=== PATIENT | female | born 1990 | race Two or more races ===

== ENCOUNTER → 2020-03-23 | Emergency (ER) | payer MEDICAID ==
[~2020-03-23] VITALS: Ht 160 cm; Wt 65.8 kg
[~2020-03-23] MED LIST: IBUPROFEN600 M1 ORAL; ROBAXIN-500MG ORAL
[2020-03-23 13:45] VITALS: BP 109/65
--- NOTE | 2020-03-23 14:31 | Emergency Room Report ---
History of Present Illness General Chief Complaint: Upper Extremity Injury Source: Patient Present Illness HPI 29-year-old female with no symptom past medical history here complaining of right hand especially right fifth finger pain after a soccer ball headache yesterday. Obvious deformity of right fifth finger noted. Swelling noted right hand. Patient has full range of motion of all digits. No ecchymosis noted. Denies tingling and numbness. Rates the pain 5 out of 10 without radiation. Has not taken medication today for symptom relief however did take ibuprofen yesterday with symptom relief. Neurovascularly intact. Denies pain radiation or tingling or numbness. Denies . Allergies: Coded Allergies: No Known Allergies (Unverified , 03/23/20) COVID-19 Screening Contact w/high risk pt: No Recent Travel to affected area: No Experienced COVID-19 symptoms?: No COVID-19 Testing performed INFORMATION SYSTEMS OPERATOR: No Patient History Past Medical History: see triage record Past Surgical History: none Pertinent Family History: none Last Menstrual Period: 03/16/20 Now: No Immunizations: UTD Reviewed Nursing Documentation: PMH: Agreed; PSxH: Agreed Nursing Documentation-PMH Past Medical History: No Stated History Review of Systems All Other Systems: negative except mentioned in HPI Physical Exam Vital Signs Date Time Temp Pulse Resp B/P (MAP) Pulse Ox O2 Delivery O2 Flow Rate FiO2 03/23/20 13:23 99.0 73 18 109/65 (80) 97 Room Air Sp02 EP Interpretation: reviewed, normal General Appearance: no apparent distress, alert, GCS 15, non-toxic Head: normocephalic, atraumatic Eyes: bilateral eye normal inspection, bilateral eye PERRL ENT: hearing grossly normal, normal pharynx, no angioedema, normal voice Neck: full range of motion, supple/symm/no masses Respiratory: chest non-tender, lungs clear, normal breath sounds, speaking full sentences Cardiovascular #1: regular rate, rhythm, no edema Cardiovascular #2: 2+ radial (R), 2+ radial (L) Gastrointestinal: normal bowel sounds, non tender, soft, non-distended, no guarding, no rebound Genitourinary: no CVA tenderness Musculoskeletal: back normal, pelvis stable, swelling - Right hand thenar side dorsum, other - Dislocation of right fifth finger Neurologic: alert, motor strength/tone normal, oriented x3, sensory intact, responsive, speech normal Psychiatric: judgement/insight normal, memory normal, mood/affect normal, no suicidal/homicidal ideation Skin: no rash Lymphatic: no adenopathy Procedures Splinting Splinting : Consent: Verbal Location: Right hand Pre-Made Type: metal Pre-Proc Neuro Vasc Exam: normal Post-Proc Neuro Vasc Exam: normal Patient Tolerated: Well Complications: None Medical Decision Making PA Attestation All my diagnosis and treatment plans were reviewed ad discussed with my supervising physician Dr. Shaikh Diagnostic Impression: Primary Impression: Finger dislocation Additional Impression: Hand contusion ER Course 29-year-old female with no symptom past medical history here complaining of right hand especially right fifth finger pain after a soccer ball headache yesterday. Obvious deformity of right fifth finger noted. Swelling noted right hand. Patient has full range of motion of all digits. No ecchymosis noted. Denies tingling and numbness. Rates the pain 5 out of 10 without radiation. Has not taken medication today for symptom relief however did take ibuprofen yesterday with symptom relief. Neurovascularly intact. Denies pain radiation or tingling or numbness. Denies . Ddx considered but are not limited to: Hand sprain, hand sprain, hand fracture Vital signs: are WNL, pt. is afebrile H&PE are most consistent with : Right hand contusion, right fifth finger dislocation ORDERS: Hand x-ray, ibuprofen, Robaxin ED INTERVENTIONS: Metal splint, Donn wrap DISCHARGE: At this time pt. is stable for d/c to home. Will provide printed patient care instructions, and any necessary prescriptions. Care plan and follow up instructions have been discussed with the patient prior to discharge. Patient to follow-up with career information specialist, take medication as directed, if worsening symptoms return to the emergency room Other X-Ray Diagnostic Results Other X-Ray Diagnostic Results : X-Ray ordered: Right hand # of Views/Limited Vs Complete: 3 View Indication: Pain EP Interpretation: Yes EUFEMIA Xray: Interpretation reviewed, by supervising MD, and agrees with findings. Interpretation: other - Dislocation of right fifth finger Impression: Other - Dislocation of right fifth finger Electronically Signed by: Johnson Trevino PA-C Last Vital Signs Date Time Temp Pulse Resp B/P (MAP) Pulse Ox O2 Delivery O2 Flow Rate FiO2 03/23/20 13:45 99.0 75 18 109/65 97 Room Air Disposition: HOME, SELF-CARE Condition: Stable Scripts Methocarbamol* (ROBAXIN-500*) 500 Mg Tablet 500 MG ORAL TID PRN for For Pain, #15 TAB 0 Refills Prov: Johnson John 03/23/20 Ibuprofen* (MOTRIN*) 600 Mg Tablet 600 MG ORAL Q8H PRN for FOR PAIN, #30 TAB 0 Refills Prov: Johnosn John 03/23/20 Referrals: NOT CHOSEN IPA/,REFERRING (PCP) Patient Instructions: Finger or Thumb Dislocation, [id number], Hand Contusion , [id number] Additional Instructions: Take medication as directed, follow with career information specialist, avoid strenuous physical activity with affected side, if worsening symptoms return to the emergency room Johnson John Mar 23, 2020 14:31
[2020-03-23 15:05] VITALS: BP 109/65
--- NOTE | 2020-03-23 18:46 | Diagnostic Imaging Report ---
Indication: Trauma, pain Technique: 3 views right hand Comparison: none Findings: No acute fractures. No dislocations. The joint spaces are preserved. Impression: Negative
== END | disposition home or self-care (01) ==
LOC: EMR 13:55
DX: S63.256A Unspecified dislocation of right little finger, initial encounter (principal); S60.221A Contusion of right hand, initial encounter; Y93.66 Activity, soccer
CPT/HCPCS: 29130; 73130; Z7502; 99283